=== PATIENT | male | born 1995 | race Caucasian/White ===

== ENCOUNTER 2017-01-23 02:22 | Emergency (ER) | payer OTHER, MEDICAID ==
[~2017-01-23] VITALS: Ht 160 cm; Wt 65.8 kg
[2017-01-23 02:38] LABS: URINE BLOOD NEGATIVE (NEG)
[2017-01-23 02:47] LABS: URINE BILIRUBIN - DIPSTICK NEGATIVE (NEG)
[2017-01-23] MEDS ORDERED: DULOXETINE 30MG30 MG FT (03:09)
[2017-01-23 03:10] LABS: AMPHETAMINES/METAMPHETAMINES NEGATIVE ng/mL (<1000)
[2017-01-23] MEDS ORDERED: HALOPERIDOL 5MG.5 MG OR (03:10)
[2017-01-23] MEDS ORDERED: BENZTROPINE1 MG PO (03:10)
[2017-01-23 03:37] LABS: HEMOGLOBIN 17.8 g/dL (14.1-18.0); LYMPH # 1.7 K/mm3 (0.7-4.5); LYMPH % 20.8 % (10-50)
[2017-01-23] MEDS ORDERED: ZOFRAN ODT4 MG PO (04:00)
--- NOTE | 2017-01-23 04:01 | Emergency Room Report ---
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 N Clinical Suspician of Infection? N Mental Status: 1 - Regular (Normal Baseline) Sepsis Risk:Low Sepsis Risk Have you (or family members/close friends) recently traveled outside the [place]? N If Yes, where/when: Have you had exposure to infectious disease within the past month? N TB? Other? Specify: Source patient, RN notes reviewed, family, RN/MD Exam Limitations no limitations Comment This is a 21-year-old gentleman arriving to the emergency room with body aches, profuse sweats, weakness, nausea and vomiting after working extensive hours in the heated, unventilated environment. He has a history of previous heated exhaustion, with symptoms being similar to past exposures. ALLERGIES Coded Allergies: No Known Allergies (01/23/17) Home Medications Reported Medications Duloxetine Hcl (Duloxetine 30MG Capsule) 60 MG FT DAILY Haloperidol (Haloperidol 5MG. Tablet) 10 MG OR BID BENZTROPINE MESYLATE (Benztropine 1MG Tab) 1 MG PO BID History Medical History General CAD? No Angina: No OK: No Hypertension? No Hyperlipidemia? No CHF? No DVT? No PE? No COPD? No Asthma? No Anemia? No GERD? No Gastric ulcers? No GI Bleed? No Hernia? No Thyroid Problems? No Hypothyroidism? No CVA? No Seizures? No Diabetes? No Renal Insuffiency? No End Stage Renal Disease? No UTI? No Stones? No BPH? No GB Disease: No Nephritic Syndrome? No Asplenia? No Hepatitis? No Sickle Cell Disease? No Arthritis? No Migraines? No Cataracts? No Glaucoma? No MRSA? No HIV? No TB? No Anxiety? No Depression? No Immunization Hx Ped.Immunizations UTD Yes DT/Tetanus 5-10 Years Ago Surgical Hx Previous Surgery?N Social History Smoking Hx Smoker: Never Smoker Tobacco: Yes Type Chew Are you/the child exposed to second-hand smoke: No Alcohol Alcohol: No Review of Systems All Other Systems Reviewed and Negative Constitutional chills, diaphoresis Gastrointestinal nausea, vomiting Psychiatric/Neurological weakness Physical Exam Vital Signs Vital Signs Date Time Temp Pulse Resp B/P Pulse O2 O2 Flow FiO2 Ox Delivery Rate 01/23 0459 98.2 84 20 135/87 98 01/23 0457 98.2 84 20 135/87 98 01/23 0330 98.6 63 18 118/73 98 01/23 0301 98.5 72 18 158/98 96 General Appearance normal appearance, WD/WN, mild distress Neck normal inspection, non-tender, supple, full range of motion Respiratory Status Yes: trachea midline, chest symmetrical, non tender chest. No: respiratory distress. Lung Sounds bilateral: normal breath sounds, lungs clear. Cardiovascular normal exam, regular rate/rhythm, no peripheral edema, no gallop, no JVD, no murmur, no rub, normal peripheral pulses Gastrointestinal normal bowel sounds, normal exam, non tender, soft, no organomegaly Extremities non-tender, normal range of motion, normal inspection Neurologic alert, advanced developer II-XII nml as tested, normal exam, oriented x 3 Mental status normal mood/affect Skin intact, normal color, warm/dry Medical Decision Making LABS/Meds/Orders Pt receiving controlled substance in ED? No Comment Upon reevaluation the patient is in stable medical condition, no acute distress, clinically improving. Advised patient to stay off for for the next 2-3 days, drink plenty of fluids, avoid prolonged heat exposure. Results/Orders Laboratory Tests 01/23/17 0315: Sodium 137, Potassium 3.1 L, Chloride 100, Carbon Dioxide 29, BUN 6 L, Creatinine 1.1, Estimated Creat Clear 97, Estimated GFR (MDRD) 83, Glucose 108 H, Calcium 9.6, Total Bilirubin 1.4 H, AST 16, ALT 26, Alkaline Phosphatase 124 H, Total Protein 8.3 H, Albumin 4.8, Globulin 3.5 H, Albumin/Globulin Ratio 1.4, Amylase 70, Lipase 100, WBC 8.2, RBC 5.74, Hgb 17.8, Hct 50.2, MCV 87.3, RDW 12.4, Plt Count 259, MPV 7.2 L, Gran % 67.4, Gran # 5.6, Lymphocytes % 20.8 , Monocytes % 7.6, Eosinophils % 3.6, Basophils % 0.6, Lymphocytes # 1.7, Monocytes # 0.6, Eosinophils # 0.3, Basophils # 0.1, PUBS MCHC 35.5 H, MCH 31.0 01/23/17 0231: Stl Aeromonas (PCR) Cancelled, Stl Cyclospora species Cancelled, Stool Rotavirus (PCR) Cancelled, Stool Astrovirus (PCR) Cancelled, Stool Campylobacter PCR Cancelled, Stool Cryptosporidium PCR Cancelled, Stl E. histolytica PCR Cancelled , Stool Giardia Lamblia PCR Cancelled, Stl P. shigelloides PCR Cancelled, Stool Sapovirus (PCR) Cancelled, Stool Vibrio (PCR) Cancelled, Stl Vibrio cholerae PCR Cancelled, Stl Norovirus GI/GII PCR Cancelled, Adenovirus (PCR) Cancelled, C. difficile Tox (PCR) Cancelled, E. coli (PCR) Cancelled, Salmonella (PCR) Cancelled, Yersinia (PCR) Cancelled 01/23/17 0225: Opiates Screen NEGATIVE, Urine Methadone Screen NEGATIVE, Barbiturates NEGATIVE, Phencyclidine Screen NEGATIVE, Amphetamines Screen NEGATIVE, Benzodiazepines Screen NEGATIVE, Cocaine Screen NEGATIVE, Marijuana (THC) Screen POSITIVE H, Urine Color DK YELLOW, Urine Appearance CLEAR, Urine pH 6.0, Ur Specific [place] >= 1.030, Urine Protein TRACE H, Urine Ketones NEGATIVE, Urine Blood NEGATIVE, Urine Nitrate NEGATIVE, Urine Bilirubin NEGATIVE, Urine Urobilinogen 0.2, Ur Leukocyte Esterase NEGATIVE, Urine WBC 5-10, Amorphous Sediment TRACE, Urine Mucus 4+, Urine Glucose NEGATIVE Current Medication Orders Sig/Sara Start time Last Medication Dose Route Stop Time Status Admin Potassium Chloride 0 .STK-MED ONE 01/23 0450 DC PO Potassium Chloride 40 MEQ ONCE ONE 01/23 0400 DC 01/23 PO 01/23 0401 0451 Ondansetron HCl 0 .STK-MED ONE 01/23 0323 DC .ROUTE Sodium Chloride 1,000 ML .STK-MED ONE 01/23 032 DC IV Ondansetron HCl 4 MG ONCE ONE 01/23 0245 DC 01/23 IV 01/23 0246 0326 Sodium Chloride 10 ML PRN PRN 01/23 0230 DCD IV 01/24 0229 Sodium Chloride 1,000 ML .Q1H1M 01/23 0230 DC 01/23 IV 01/23 0330 0326 Sodium Chloride 10 ML PRN PRN 01/23 0230 DCD IV 01/24 0230 Orders Procedure Date/time Status DRUG ABUSE SCREEN (10) 01/23 023 Complete URINALYSIS/COMPLETE 01/23 230 Complete LIPASE 01/23 230 Complete CBC WITH AUTO DIFF 01/23 230 Complete CHEM 12 PROFILE 01/23 230 Complete AMYLASE 01/23 230 Complete IV SALINE LOCK 01/23 229 Active Departure Departure Time of Disposition 0358 Disposition DC Home or Self Care(routine) Clinical Impression Primary Impression: Heat exhaustion Qualifiers: Encounter type: initial encounter Qualified Code: T67.5XXA - Heat exhaustion, unspecified, initial encounter Secondary Impressions: Hypokalemia Condition STABLE Referrals WILBER ALBARADO (Family): 2 Days-Call Office if not better Patient Instructions DI for Heat Exhaustion and Heat Stroke, DI for Hypokalemia Additional Instructions Please increase your fluid intake, avoid excessive heat exposure. Discharge Counseling Counseled pt/family regarding diagnosis, test results, medications/RX, home care, follow up needs Comment Please increase your fluid intake, avoid excessive heat exposure. Prescriptions Current Visit Scripts Ondansetron (Zofran 4MG Odt) 4 MG PO Q6HP PRN NAUSEA AND VOMITING #20 ODT ED Critical Care [place] 0957
[2017-01-23 04:59] VITALS: BP 135/87
== END 2017-01-23 04:59 | disposition home or self-care (01) ==
LOC: ER 02:22
PROVIDERS: Emergency Medicine
DX: T67.5XXA Heat exhaustion, unspecified, initial encounter (principal); E87.6 Hypokalemia
CPT/HCPCS: J2405